=== PATIENT | male | born 1995 | race Caucasian/White ===

== ENCOUNTER 2019-01-05 20:07 | Emergency (ER) | payer OTHER ==
[~2019-01-05] VITALS: Ht 160 cm; Wt 95.3 kg
[2019-01-05 20:21] VITALS: BP_SYST 138
--- NOTE | 2019-01-05 22:28 | NUR ---
Pt ambulatory to bed 2 for evaluation
--- NOTE | 2019-01-05 22:30 | NUR ---
Patient AOx4, ambulatory, presents to ER with complaint of of right 5th digit pain 8/10 s/p hand injury. Patient states he crushed his hand on a door. Pain worsens with movement. No other symptoms or complaints. Capillary refill <2 secs. No report of numbness. Mother at bedside.
--- NOTE | 2019-01-05 22:40 | NUR ---
ER MD Espinosa at bedside for medical evaluation.
[2019-01-05] MEDS ORDERED: IBUPROFEN 800 MG TABLET PO ONE (23:00)
[2019-01-05 23:29] VITALS: BP_SYST 132
--- NOTE | 2019-01-05 23:29 | NUR ---
Patient given written and verbal discharge instructions and verbalizes understanding. ER MD discussed with patient the results and treatment provided. Patient in stable condition. ID arm band removed. Rx of Motrin given. Patient educated on pain management and to follow up with PMD. Pain Scale 2/10 tolerable to patient. Opportunity for questions provided and answered. Medication side effect fact sheet provided.
== END 2019-01-05 23:29 | disposition home or self-care (01) ==
LOC: SED 20:07
DX: S62.396A Other fracture of fifth metacarpal bone, right hand, initial encounter for closed fracture (principal); W23.0XXA Caught, crushed, jammed, or pinched between moving objects, initial encounter; Y93.89 Activity, other specified; Y92.89 Other specified places as the place of occurrence of the external cause; Y99.8 Other external cause status
CPT/HCPCS: 99283